=== PATIENT | female | born 1970 | race Caucasian/White ===

== ENCOUNTER 2016-10-20 09:54 | Emergency (ER) | payer SELFPAY ==
[2016-10-20 10:15] VITALS: BP 113/53
--- NOTE | 2016-10-20 10:55 | ERNOTE ---
ENT HPI Date of Service: 10/20/16 Time Seen by Provider: 10/20/16 10:45 Source: patient Exam Limitations: no limitations - Immun/Allergies/Home Medications Immunizations: IMMUNIZATION HX History of Influenza Vaccine No Hx Pneumococcal Vaccination No Allergies/Adverse Reactions: Allergies Allergy/AdvReac Type Severity Reaction Status Date / Time No Known Allergies Allergy Unverified 10/20/16 10:15 Home Medications: HOME MEDICATIONS Cephalexin [Keflex] 500 mg PO QID #40 capsule 10/20/16 [Last Taken Unknown] Ibuprofen [Caldolor] 800 mg IV TID PRN #30 vial 10/20/16 [Last Taken Unknown] - History of Present Illness Narrative: pt has pain in right ear and behind right ear and reports no trauma Review of Systems - Review of Systems Constitutional: Present: no symptoms reported ENT: Present: See HPI Respiratory: Present: no symptoms reported Cardiology: Present: no symptoms reported Gastrointestinal/Abdominal: Present: no symptoms reported Genitourinary: Present: no symptoms reported Musculoskeletal: Present: no symptoms reported Skin: Present: no symptoms reported - Patient's Past Medical History Patient History - Medical: No pertinent hx Patient History - Cardiac/Respiratory: No pertinent hx Patient History - Cancer: No Hx of Cancer Patient History - Surgical Procedures: Appendectomy, Tubal Ligation, T & A Patient History - Other: None - Social History Living Situations: home Abuse History: No History of abuse Psych History: No pertinent hx Smoking Status: Current every day smoker Alcohol Use: none Drug Use: none - Immunizations Hx Pneumococcal Vaccination: No History of Influenza Vaccine: No Physical Exam - Physical Exam General Appearance: Present: wd/wn, alert, no apparent distress Ears, Nose, Throat: Present: normal ENT inspection, hearing grossly normal Neck: Present: other - right TM is injected slighly. Pt is tender upon palpation of the right mastoid area Respiratory: Present: no respiratory distress, normal breath sounds, no accessory muscle use ED Progress - Vital Signs Vital Signs: Vital Signs 10/20/16 10:09 Temperature 35.9 C L Pulse Rate 91 Respiratory 12 Rate Blood Pressure 113/53 O2 Sat by Pulse 100 Oximetry - Progress/Reassessment Chief Complaint: Earache Departure Clinical Impression: Mastoiditis of right side - Departure Disposition: Home self-care Condition: Good Instructions: Mastoiditis, Pediatric Prescriptions: Cephalexin [Keflex] 500 mg PO QID #40 capsule Ibuprofen [Caldolor] 800 mg IV TID PRN #30 vial PRN Reason: Pain
== END 2016-10-20 11:00 | disposition home or self-care (01) ==
LOC: ER 09:54
DX: H70.91 Unspecified mastoiditis, right ear (principal)